=== PATIENT | male | born 1970 | race Caucasian/White ===

== ENCOUNTER 2016-11-04 12:03 | Inpatient (IN) | payer OTHER ==
[~2016-11-04] VITALS: Ht 177.8 cm; Wt 117.6 kg
[2016-11-04 13:06] LABS: BASOPHIL % 0.4 % (0-2); PLATELET COUNT 244 x10^3mcL (130-400)
[2016-11-04 13:11] LABS: RED CELL DISTRIBUTION WIDTH 16.9 % (11.5-14.5)
[2016-11-04 13:12] LABS: rbc morphology (normal/abnorm) ABNORMAL (NORMAL)
[2016-11-04 13:15] LABS: CALCIUM 8.9 mg/dL (8.5-10.1); CARBON DIOXIDE 28.6 mmol/L (21-32); CHLORIDE SERUM 107 mmol/L (98-107); GFR1 > 60 mL/min; GLUCOSE SERUM 110 mg/dL (74-106); POTASSIUM SERUM 3.8 mmol/L (3.5-5.1); SODIUM SERUM 143 mmol/L (136-145)
[2016-11-04 13:22] LABS: ALBUMIN 3.4 g/dL (3.4-5.0); ALKALINE PHOSPHATASE 69 U/L (46-116); ALT/SGPT 33 U/L (16-63); AMYLASE 48 U/L (25-115); AST/SGOT 32 U/L (15-37); LIPASE 237 IU/L (73-393)
[2016-11-04 14:39] LABS: UA SPECIFIC GRAVITY >=1.030 (1.005-1.035); microscopic required? YES; urine erythrocyte NEGATIVE (NEGATIVE)
[2016-11-04] MEDS ORDERED: BENAZEPRIL HYDR20 M1 PO (15:02)
[2016-11-04] MEDS ORDERED: ALPRAZOLAM1 MG PO (15:02)
[2016-11-04] MEDS ORDERED: LOVASTATIN40 MG PO (15:03)
[2016-11-04] MEDS ORDERED: GABAPENTIN100 M2 PO (15:03)
[2016-11-04] MEDS ORDERED: COUMADIN5 MG PO (15:04)
[2016-11-04] MEDS ORDERED: AMBIEN10 MG PO (15:04)
[2016-11-04 15:21] LABS: MAGNESIUM 2.1 mg/dL (1.8-2.4); PHOSPHOROUS 3.1 mg/dL (2.5-4.9)
[2016-11-04 15:22] LABS: CHOLESTEROL/HDL RATIO 2.3
[2016-11-04 15:24] LABS: T3 TOTAL 0.96 ng/mL
[2016-11-04 15:27] LABS: FREE T4 1.2 ng/dL (0.76-1.46); FREE THYROXINE INDEX 2.7 ug/dL (1.4-4.5); T4(THYROXINE) 6.9 ug/dL (4.7-13.3)
[2016-11-04 15:56] VITALS: BP 169/111
[2016-11-04 15:58] VITALS: BP 169/111
[2016-11-04 21:15] VITALS: BP 161/92; BP 172/109
[2016-11-04 21:45] VITALS: BP 161/92
[2016-11-04 22:30] VITALS: BP 158/94
[2016-11-04 22:40] LABS: AMPHETAMINE QUAL UR POSITIVE (NEG <=1000)
[2016-11-04 23:01] VITALS: BP 150/98
[2016-11-05] VITALS (13 sets, daily range): BP systolic 126–164; BP diastolic 82–109; Ht 177.8 cm; Wt 117.6 kg
[2016-11-05 05:45] LABS: CALCIUM 8.4 mg/dL (8.5-10.1); CARBON DIOXIDE 28.9 mmol/L (21-32); CHLORIDE SERUM 108 mmol/L (98-107); CREATININE SERUM 0.9 mg/dL (0.7-1.3); GFR1 > 60 mL/min; GLUCOSE SERUM 103 mg/dL (74-106); POTASSIUM SERUM 4.1 mmol/L (3.5-5.1); SODIUM SERUM 143 mmol/L (136-145)
[2016-11-05 05:53] LABS: BASOPHIL % 0.4 % (0-2); PLATELET COUNT 235 x10^3mcL (130-400)
[2016-11-05 05:55] LABS: RED CELL DISTRIBUTION WIDTH 16.9 % (11.5-14.5)
[2016-11-06] VITALS (9 sets, daily range): BP systolic 135–186; BP diastolic 72–113
[2016-11-07 05:28] VITALS: BP 156/84
[2016-11-07 11:30] VITALS: BP 150/88
[2016-11-07] MEDS ORDERED: NORCO1 TA2 PO (11:41)
[2016-11-07] MEDS ORDERED: COLACE100 MG PO (11:42)
[2016-11-07 12:02] VITALS: BP 150/88
== END 2016-11-07 12:20 | disposition home or self-care (01) | DRG 247 ==
LOC: ED 12:03 → DU 14:16 → IC 14:16 → DU 15:48 → IC 20:22 → DU 11-05 12:54 → MU 11-07 09:08
PROVIDERS: Emergency Medicine; Family Medicine; ADMIT Family Medicine
DX: K56.60 Unspecified intestinal obstruction (principal); N17.0 Acute kidney failure with tubular necrosis; F15.10 Other stimulant abuse, uncomplicated; R73.03 Prediabetes; I16.0 Hypertensive urgency; I70.1 Atherosclerosis of renal artery; E44.1 Mild protein-calorie malnutrition; Z98.84 Bariatric surgery status; Z68.37 Body mass index [BMI] 37.0-37.9, adult; Z79.01 Long term (current) use of anticoagulants; F17.210 Nicotine dependence, cigarettes, uncomplicated; Z86.718 Personal history of other venous thrombosis and embolism; I10 Essential (primary) hypertension; E66.01 Morbid (severe) obesity due to excess calories
CPT/HCPCS: 82962; 83880; 84439; A9698; J0360; J0690; J2175; J2250; J2270; J2405; J2543; J3010; J3490; J7030; Q0092; Q9966; Q9967

== ENCOUNTER 2017-10-11 18:47 | Emergency (ER) | payer OTHER ==
[~2017-10-11] VITALS: Ht 177.8 cm; Wt 113.4 kg
[~2017-10-11 18:47] MED LIST: ALPRAZOLAM1 MG PO; AMBIEN10 MG PO; BENAZEPRIL HYDR20 M1 PO; COLACE100 MG PO; COUMADIN5 MG PO; GABAPENTIN100 M2 PO; LOVASTATIN40 MG PO; NORCO1 TA2 PO
[2017-10-11 19:07] VITALS: Ht 177.8 cm; Wt 113.4 kg
[2017-10-11 20:28] LABS: BASOPHIL % 0.4 % (0-2); PLATELET COUNT 251 x10^3mcL (130-400)
[2017-10-11 20:44] LABS: RED CELL DISTRIBUTION WIDTH 17.2 % (11.5-14.5)
[2017-10-11 20:45] LABS: CALCIUM 8.6 mg/dL (8.5-10.1); CARBON DIOXIDE 30.1 mmol/L (21-32); CHLORIDE SERUM 107 mmol/L (98-107); GFR1 > 60 mL/min; GLUCOSE SERUM 93 mg/dL (74-106); POTASSIUM SERUM 5.2 mmol/L (3.5-5.1); SODIUM SERUM 141 mmol/L (136-145)
[2017-10-11 20:50] LABS: ALBUMIN 3.2 g/dL (3.4-5.0); ALKALINE PHOSPHATASE 71 U/L (46-116); ALT/SGPT 35 U/L (16-63); AMYLASE 59 U/L (25-115); AST/SGOT 34 U/L (15-37); BILIRUBIN TOTAL 0.54 mg/dL (0.20-1.00); LIPASE 261 IU/L (73-393); TOTAL PROTEIN, SERUM 6.8 g/dL (6.4-8.2)
[2017-10-11 22:13] VITALS: BP 178/109
== END 2017-10-11 22:13 | disposition home or self-care (01) ==
LOC: ED 18:47
PROVIDERS: Emergency Medicine
DX: R10.13 Epigastric pain (principal); J45.909 Unspecified asthma, uncomplicated; I11.0 Hypertensive heart disease with heart failure; I50.9 Heart failure, unspecified
CPT/HCPCS: 36415; 83880; J1885; J3010

== ENCOUNTER 2018-03-23 12:43 | Inpatient (IN) | payer OTHER | END 2018-03-25 15:14 | disposition home or self-care (01) | LOC: ED 12:43 → DU 15:19 → ED 12:43 → DU 15:19 → ED 12:43 → DU 15:19 → ED 12:43 → DU 15:19 → ED 12:43 → DU 15:19 → ED 12:43 → DU 15:19 → ED 12:43 → DU 15:19 | DX: I50.43 Acute on chronic combined systolic (congestive) and diastolic (congestive) heart failure (principal); E43 Unspecified severe protein-calorie malnutrition; D68.69 Other thrombophilia; Z68.41 Body mass index [BMI] 40.0-44.9, adult; E11.65 Type 2 diabetes mellitus with hyperglycemia; D64.9 Anemia, unspecified; F15.21 Other stimulant dependence, in remission; F17.210 Nicotine dependence, cigarettes, uncomplicated; Z59.0 Homelessness; Z98.84 Bariatric surgery status; Z79.01 Long term (current) use of anticoagulants; Z91.14 Patient's other noncompliance with medication regimen; Z86.718 Personal history of other venous thrombosis and embolism ==

== ENCOUNTER 2019-03-19 22:43 | Emergency (ER) | payer OTHER ==
[~2019-03-19] VITALS: Ht 177.8 cm; Wt 115.7 kg
[~2019-03-19 22:43] MED LIST changes: +ELIQUIS2.5 MG PO; +LASIX40 MG PO; +LEVAQUIN750 MG PO
[2019-03-19 23:01] VITALS: BP 162/103; Ht 177.8 cm; Wt 115.7 kg
== END 2019-03-20 01:35 | disposition home or self-care (01) ==
LOC: ED 22:43
DX: L02.01 Cutaneous abscess of face (principal); I11.0 Hypertensive heart disease with heart failure; I50.9 Heart failure, unspecified; J45.909 Unspecified asthma, uncomplicated; Z98.890 Other specified postprocedural states
CPT/HCPCS: 90715; J2001

== ENCOUNTER 2019-08-17 22:44 | Inpatient (IN) | payer OTHER ==
[~2019-08-17] VITALS: Ht 177.8 cm; Wt 131.5 kg
[2019-08-17 22:57] VITALS: Ht 177.8 cm; Wt 131.5 kg
--- NOTE | 2019-08-17 23:05 | NUR ---
PT TO ED WITH CHF EXACERBATION X3 DAYS. PT REPORTS SOB WHEN IN SUPINE POSITION. PT REPORTS HIS BP IS "OUT OF CONTROL" AND HIS "HEAD IS GOING TO EXPLODE". PT REPORTS BLOATING TO ABDOMEN X1 DAY. PT REPORTS HE HAS A DVT IN RIGHT LOWER EXTREMITY. PT REPORTS HE IS UNABLE TO RELAX. PT LUNG SOUNDS CONGESTED BILATERALLY. PT NOTED WITH +1 PITTING EDEMA TO BILATERAL LOWER EXTREMITIES. PT REPORTS HE WAS DX WITH CHF IN "1989 SOMETHING". PT REPORTS HE IS COMPLIANT WITH HOME MEDIACTIONS AT THIS TIME. PT DENIES N/V/D/C, FEVER, COUGH, AND SICK CONTACTS AT THIS TIME. PT IS A&OX4.
--- NOTE | 2019-08-17 23:15 | NUR ---
SALINA, EMT AT BEDSIDE FOR EKG
--- NOTE | 2019-08-17 23:15 | NUR ---
DR HASSAN AT BEDSIDE FOR MSE
--- NOTE | 2019-08-17 23:20 | NUR ---
XRAY AT BEDSIDE
[2019-08-17 23:36] LABS: CALCIUM 8.4 mg/dL (8.5-10.1); CREATININE SERUM 1.6 mg/dL (0.7-1.3); POTASSIUM SERUM 4.5 mmol/L (3.5-5.1)
[2019-08-17 23:40] LABS: BILIRUBIN TOTAL 0.7 mg/dL (0.20-1.00); TOTAL PROTEIN, SERUM 7.3 g/dL (6.4-8.2)
[2019-08-17 23:44] LABS: ALBUMIN 3.3 g/dL (3.4-5.0)
--- NOTE | 2019-08-17 23:47 | NUR ---
PT 02 NOTED AT 88% ON 2L NC INCREASED 02 TO 4L NC-O2 SATURATION NOW AT 99% PT REPORTS "THAT OXYGEN IS MUCH BETTER".
[2019-08-18] VITALS (7 sets, daily range): BP systolic 44–125; BP diastolic 17–77
--- NOTE | 2019-08-18 00:02 | NUR ---
PT PLACED ON NON-REBREATHER 15L. PT 02 SATURATION 100% AT THIS TIME
--- NOTE | 2019-08-18 00:04 | NUR ---
REPOSITIONED PT WITH HOB ELEVATED.
--- NOTE | 2019-08-18 00:06 | NUR ---
DR HASSAN AT BEDSIDE, AWARE OF PTS CONDITION. PER DR HASSAN, CALL RT FOR BIPAP. RT CALLED AT THIS TIME. PT IS A&OX4.
--- NOTE | 2019-08-18 00:08 | NUR ---
RT AT BEDSIDE TO PUT PT ON BIPAP.
--- NOTE | 2019-08-18 00:12 | NUR ---
PT REPORTS "IT IS A LITTLE EASIER TO BREATHE NOW". PT SITTING UP IN HIGH SETHI'S POSITION. RESPONSIVE AND ORIENTED. PT REMAINS ON FULL CM IN VIEW OF NURSE'S STATION.
[2019-08-18 00:38] LABS: PLATELET COUNT 316 x10^3mcL (130-400)
--- NOTE | 2019-08-18 00:50 | NUR ---
DR HASSAN AT BEDSIDE FOR CARDIAC ULTRASOUND.
[2019-08-18 00:59] LABS: RED CELL DISTRIBUTION WIDTH 20.5 % (11.5-14.5)
--- NOTE | 2019-08-18 01:16 | NUR ---
SPOKE WITH ARMATURE WINDERZACH DERAS AND INFORMED HIM THAT WE WILL BE HOLDING OFF ON CT AT THIS TIME PER DR SONYA MIR.
--- NOTE | 2019-08-18 01:43 | NUR ---
AT BEDSIDE ASSESSING PT.
[2019-08-18 02:01] LABS: CHOLESTEROL/HDL RATIO 2.4
--- NOTE | 2019-08-18 02:01 | NUR ---
CHAYO # [phone] PROVIDED UPDATE TO WITH PERMISSION OF PT. INFORMED HER OF PT ADMISSION
[2019-08-18 02:13] LABS: rbc morphology (normal/abnorm) ABNORMAL (NORMAL)
--- NOTE | 2019-08-18 02:16 | NUR ---
D/C IV IN RIGHT HAND AT THIS TIME. UNABLE TO FLUSH WITHOUT DIFFICULTY.
--- NOTE | 2019-08-18 02:19 | NUR ---
PT NOTED HYPOTENSIVE ON MONITOR. MYSELF AND JENNIFER PARNELL AT BEDSIDE. PT REPOSITIONED AND BP RECHECKED. MAP OF 83 CURRENTLY AFTER BP RECHECK. PT ANSWERS QUESTIONS APPROPRIATELY, REQUESTING ANXIETY MEDICATION. DR HASSAN AT BEDSIDE. NO NEW ORDERS AT THIS TIME.
[2019-08-18 02:21] LABS: MONOCYTE 11 % (0-7); SEGMENTED NEUTROPHILS 73 % (37-75)
--- NOTE | 2019-08-18 03:06 | NUR ---
PT RESTING IN BED ON LEFT SIDE. PT ON BIPAP, ON FULL COMMUNITY PROGRAM ASSISTANT, AND IN FULL VIEW OF NURSES STATION. NO S/S OF DISTRESS NOTED AT THIS TIME.
--- NOTE | 2019-08-18 03:30 | NUR ---
PT ASSISTED ON TO BED [place] AT THIS TIME.
--- NOTE | 2019-08-18 04:06 | NUR ---
PT REFUSING DEJESUS INSERTION AT THIS TIME. PT REPORTS "NO, NO, NO, I HAD A BAD EXPERIENCE, I WON'T LET YOU DO THAT". INFORMED PT THAT IT IS NECESSARY FOR HIS CARE, PT CONTINUES TO REFUSE. AWARE.
--- NOTE | 2019-08-18 05:26 | NUR ---
DR HASSAN, TANJA, RT, AKANKSHA, RT AND DEE, RT, RAVINDER, RN, MYSELF AND CATHY, EMT AT BEDSIDE FOR INTUBATION. PT ON FULL OIL DISTRIBUTOR, CRASH CART AT BEDSIDE. 525-1 INTUBATION ATTEMPT SUCCESSFUL. 526-PER DR HASSAN, INTUBATION CONFIRMED BY AUSCULTATION AT THIS TIME.
--- NOTE | 2019-08-18 05:26 | NUR ---
0526-INTUBATION COMPLETED BY DR HASSAN AT THIS TIME 0527-PER DR HASSAN, ETT PLACEMENT CONFIRMED BY AUSCULTATION, 26CM AT LIP.
--- NOTE | 2019-08-18 05:27 | NUR ---
PER DR HASSAN, INCREASE EPI TITRATION TO 15MCG/MIN AT THIS TIME. 0542- PER DR HASSAN, INCREASE EPI TITRATION TO 20MCG/MIN AT THIS TIME. 0626-PER DR HASSAN, DECREASE EPT TITRATION TO 15MCG/MIN AT THIS TIME.
--- NOTE | 2019-08-18 05:39 | NUR ---
RT TO INCREASE PEEP TO [address] HASSAN AT THIS TIME
--- NOTE | 2019-08-18 05:41 | NUR ---
PT NOTED WITH [address]%. [address] HASSAN AT BEDSIDE. PER DR HASSAN, NO BREATH SOUNDS NOTED TO LEFT SIDE. ETT PULLED BACK TO 23CM AT THE LIP. IMPROVEMENT OF OXYGEN SATURATION NOTED AT THIS TIME.
--- NOTE | 2019-08-18 05:44 | NUR ---
XRAY AT BEDSIDE TO CONFIRM ETT PLACEMENT
--- NOTE | 2019-08-18 05:46 | NUR ---
PT NOTED OPENING EYES, MOVING HEAD, UPPER EXTREMITIES, AND LOWER EXTREMITIES. PER DR HASSAN, INCREASE TITRATION TO 2MG AT THIS TIME.
--- NOTE | 2019-08-18 06:20 | NUR ---
DR HASSAN AT BEDSIDE FOR CENTRAL LINE PLACEMENT.
--- NOTE | 2019-08-18 06:48 | NUR ---
RT INCREASED PEEP TO 12, PER DR HASSAN AT THIS TIME
--- NOTE | 2019-08-18 07:12 | NUR ---
KETAMINE DRIP MOVED FROM L AC TO CENTRAL LINE, [place].
--- NOTE | 2019-08-18 07:26 | NUR ---
PT REPORT CALLED TO TODD PARNELL IN ICU.
[2019-08-18 07:29] LABS: CALCIUM 7.9 mg/dL (8.5-10.1); CREATININE SERUM 2.2 mg/dL (0.7-1.3); MAGNESIUM 2.7 mg/dL (1.8-2.4); PHOSPHOROUS 7.7 mg/dL (2.5-4.9)
[2019-08-18 07:37] LABS: UA SPECIFIC GRAVITY >=1.030 (1.005-1.035); microscopic required? YES; urine erythrocyte TRACE (NEGATIVE)
[2019-08-18 07:39] LABS: POTASSIUM SERUM 5.6 mmol/L (3.5-5.1)
--- NOTE | 2019-08-18 07:45 | NUR ---
PT OFF FLOOR FOR CT SCAN. PT ON FULL CM, DRIPS INFUSING, RT AT BEDSIDE, PT REMAINS ON VENTILATOR. PT SEDATED AT THIS TIME. VSS.
--- NOTE | 2019-08-18 07:55 | NUR ---
1MG EPI IN 250ML D5W DRIP STARTED AT THIS TIME. EPI DRIP COMPLETED INFUSION WHILE PT WAS IN CT. NEW DRIP INITIATED AT THIS TIME.
--- NOTE | 2019-08-18 08:06 | NUR ---
REPORT RECIEVED FROM STUCC[employer] WORKER RAVINDER @ 8967, PT GOING TO CT PRIOR TO TRANSFER PT ARRIVED AT 0806, INTUBATED AND SEDATED ON FENT 150MCG/HR, ABLE TO FOLLOW SIMPLE COMMANDS, PT ON VENT 23CM @LL. VCV-AC, 450 TV, 100% FIO2, 12 PEEP, 14 RR, LUNG SOUNDS DIMINISHED BILATERALLY, PITTING EDEMA TO EXTREMETIES, NSR, PT ON EPI DRIP AT 10MCG/HR, SKIN MOTTELING TO BLE, LT ANGUIANO SCAB, OGT INTACT & SECURED, PT HAS RT IJ CENTRAL LINE X3 PORTS, RT FOREARM 18G PIV AND RT AC 18G PIV, PT HAS F/C INTACT. CRITICAL LAB VALUES OF LACTIC ACID 7.4 & POTASSIUM @ 5.6 REPORTED TO ,
--- NOTE | 2019-08-18 08:12 | NUR ---
CT SCAN COMPLETED AT THIS TIME. PT TRANSFERRED FROM CT TO ICU BED 5 AT THIS TIMES.
--- NOTE | 2019-08-18 08:30 | NUR ---
DR LOOMIS AT BEDSIDE TO ASSESS PATIENT. UPDATES PROVIDED BY NURSING. NEW ORDERS RECEIVED. WILL CARRY OUT ORDERE. WILL CONTINUE TO MONITOR.
[2019-08-18 08:34] LABS: AMPHETAMINE QUAL UR POSITIVE (See below)
--- NOTE | 2019-08-18 08:50 | NUR ---
US TECH AT BEDSIDE AND PERFORMED US VENOUS/ARTERIAL.
--- NOTE | 2019-08-18 09:05 | NUR ---
PATIENT'S K 5.6. PATIENT ADMINISTERED 1 AMP D50 AND 5 UNITS REGULAR INSULIN IVP TO DECREASE K+ LEVEL. BOLUS OF 500 ML INITIATED AT THIS TIME ALSO.
--- NOTE | 2019-08-18 09:05 | NUR ---
AB COOL AT BEDSIDE AND TITRATED FIO2 ON VENT TO 70% AND CHANGED RATE TO 18.
--- NOTE | 2019-08-18 09:05 | NUR ---
TITRATED FIO2 TO 70%., INCREASED RR TO 18 AND VT:[address] LOOMIS. NO COMPLIATIONS AT THIS TIME. WILL CONT.TO MONITOR
[2019-08-18 09:12] LABS: PLATELET COUNT 246 x10^3mcL (130-400); RED CELL DISTRIBUTION WIDTH 20.4 % (11.5-14.5)
[2019-08-18 09:13] LABS: BASOPHIL % 0.3 % (0-2)
--- NOTE | 2019-08-18 10:16 | NUR ---
AB COOL AT BEDSIDE AND TITRATED FIO2 ON VENT TO 60%. SPO2 REAMINS GREATER THAN 95%.
--- NOTE | 2019-08-18 11:01 | NUR ---
ECHOCARDIOGRAM PENDING-COVID RESULT PENDING
[2019-08-18 11:05] LABS: rbc morphology (normal/abnorm) ABNORMAL (NORMAL)
--- NOTE | 2019-08-18 11:14 | NUR ---
PATIENT'S MOTHER KIM TELEPHONED UNIT FOR PATIENT UPDATE. UPDATES PROVIDED BY NURSING. TELEPHONE NUMBER FOR PATIENT'S MOTHER .
[2019-08-18 11:23] LABS: CALCIUM 7.6 mg/dL (8.5-10.1); CARBON DIOXIDE 18.5 mmol/L (21-32); CREATININE SERUM 2.4 mg/dL (0.7-1.3)
--- NOTE | 2019-08-18 12:00 | NUR ---
TITRATED FIO2 TO 50%. NO COMPLICATIONS AT THIS TIME. SPO2:99%. PARMJIT BROOKS NOTIFIED. WILL CONT.TO MONITOR
--- NOTE | 2019-08-18 13:03 | NUR ---
PATIENT'S BP 74/41, MAP 51. LEVOPHED INITIATED AT 2 MCG/MIN, WILL CONTINUE TO MONITOR.
--- NOTE | 2019-08-18 13:16 | NUR ---
UNABLE TO AROUSE PATIENT. FENTANYL AND VERSED TITRATED OFF. LEVOPHED REMAINS ON FOR LOW BP. PAGED DR HUFFMAN AND MADE AWARE CHANGE OF CONDITION.
--- NOTE | 2019-08-18 13:25 | NUR ---
ASSESSED PATIENT'S BEDSIDE GLUCOSE AT 149.
--- NOTE | 2019-08-18 13:30 | NUR ---
DR Ethel CLIFFORD AT BEDSIDE TO ASSESS PATIENT. NURSING PROVIDING PATIENT UPDATE.
--- NOTE | 2019-08-18 13:37 | NUR ---
PATIENT'S SPO2 IN 70'S. FIO2 ON VENT TITRATED TO 100%. FLORIAN RT MADE AWARE.
--- NOTE | 2019-08-18 13:50 | NUR ---
DR HUFFMAN ON UNT. UPDATESPROVIDED BY NURSING. QUANG CRAIG RECEIVED FOR Drill Map.
--- NOTE | 2019-08-18 14:06 | NUR ---
NEOSYNEPHRINE INITIATED AT 1405, LEVOPHED AT 30MCG/MIN BP CONTINUE TO BE LOW, 72/40 (51). CON INITIATED AT 50MCG/MIN
--- NOTE | 2019-08-18 14:31 | NUR ---
CANCELLATION REQUESTED FOR ECHOCARDIOGRAM PER DR ALEX
--- NOTE | 2019-08-18 15:34 | NUR ---
DR HUFFMAN WILL CONTACT PATIENT'S AND DISCUSS POC AND CURRENT EVENTS.
--- NOTE | 2019-08-18 16:31 | NUR ---
CON TITRATED TO 225MCG/MIN BP 83/23, LEVOPHED @ 30MCG/MIN. WILL CONTINUE TO MONITOR
--- NOTE | 2019-08-18 16:49 | NUR ---
CON TITRATED TO 250MCG/MIN FOR BP 82/57
--- NOTE | 2019-08-18 17:10 | NUR ---
SHIP MANAGER AT BEDSIDE PERFORMING CARDIAC ECHO. PATIENT NOTED TO HAVE GONE INTO ASYSTOLE. CODE [facility]UE CALLED. SEE CODE SHEET.
[2019-08-18 17:15] LABS: BILIRUBIN TOTAL 1.2 mg/dL (0.20-1.00); CALCIUM 7.9 mg/dL (8.5-10.1); CARBON DIOXIDE 17.8 mmol/L (21-32); CREATININE SERUM 2.8 mg/dL (0.7-1.3); TOTAL PROTEIN, SERUM 7.1 g/dL (6.4-8.2)
[2019-08-18 17:17] LABS: BASOPHIL % 0.3 % (0-2); PLATELET COUNT 245 x10^3mcL (130-400)
--- NOTE | 2019-08-18 17:25 | NUR ---
DR DIETRICH UNABLE TO GET IN CONTACT WITH PATIENT'S CHAYO. HE TELEPHONED PATIENT'S MOTHER KIM AND INFORMED HER OF PATIENT'S STATUS.
[2019-08-18 17:43] LABS: rbc morphology (normal/abnorm) ABNORMAL (NORMAL)
--- NOTE | 2019-08-18 18:09 | NUR ---
very limited echo done.
--- NOTE | 2019-08-18 18:20 | NUR ---
[facility] CALLED, JARED ANSWERED RELEASED PT,
--- NOTE | 2019-08-18 18:26 | NUR ---
[facility] CALLED, AWAITING CALL BACK
--- NOTE | 2019-08-18 19:30 | NUR ---
PT REPORT GIVEN BY REGISTERED NURSE BEHAVIORAL HEALTH AMY. PT HAS BEEN DECLARED AT [address] Unique RAMSAY. PT DX CARDIOPULMONARY ARREST. [facility] CONTACTED AND D/W WITH JARED AND HAS RELEASED BODY. REGISTERED N[facility] HE[facility] HAS CALLED SERVER MANAGER FOR INITIAL REPORT AND HAS BEEN AWAITING FOR CALL BACK FROM SERVER MANAGER TO GIVE REPORT AND FOR BODY TO BE RELEASED. NO FURTHER PLANS. WILL AWAIT FOR CALL BACK.
--- NOTE | 2019-08-18 19:34 | NUR ---
REPORT GIVEN TO SABIHA PARNELL, DELEGATED CALL FROM [facility] TO NURSE. ALL QUESTIONS & CONCERNS ANSWERED
--- NOTE | 2019-08-18 21:13 | NUR ---
POLYSOMNOGRAPHIC TECHNICIAN PAGED TWICE. ABLE TO D/W WITH PHOTORESIST CONTACT PRINTER AND IS MADE AWARE ABOUT ICU 5 PATIENT AND STATES THEY ARE BACKED UP AND WILL CALL BACK [facility].
--- NOTE | 2019-08-18 21:34 | NUR ---
D/W BACK UP SCAN COORDINATOR PRODUCE SERVICE TEAM MEMBER. PT H&P GIVEN. BECAUSE PT WAS POSITIVE FOR AMPHETAMINES ON URINE DRUG SCREEN, BACK UP SCAN COORDINATOR CANNOT RELEASE PT AND WILL HAVE DEPUTY COME TO REVIEW PT CHART FOR POSSIBLE OD PLAYING A FACTOR IN PATIENT EXPIRATION BUT BACK UP SCAN COORDINATOR STATES PT CAN BE TRANSFERRED TO [facility] AND BE HELD THERE UNTIL DEPUTY COMES TO REVIEW PT CASE.
--- NOTE | 2019-08-18 22:12 | NUR ---
D/W BOWL ATTENDANT SUSAN UMANA. BOWL ATTENDANT DUE TO PT TESTING POSITIVE FOR AMPHETAMINES. BUT BOWL ATTENDANT CLEARLY STATES ALL TUBES AND LINES CAN BE REMOVED AND PT CAN BE TRANSFERRED TO [facility] WHERE PT WILL BE HELD UNTIL DEPUTY IS SENT.
== END 2019-08-18 21:46 | disposition expired | DRG 133 ==
LOC: ED 22:44 → IC 08-18 01:10
PROVIDERS: Emergency Medicine; Internal Medicine Critical Care Medicine; ADMIT Family Medicine; ATTEND Family Medicine
PROC: 0BH17EZ Insertion of Endotracheal Airway into Trachea, Via Natural or Artificial Opening (ICD-10-PCS; principal; 2019-08-18)
PROC: 02HV33Z Insertion of Infusion Device into Superior Vena Cava, Percutaneous Approach (ICD-10-PCS; 2019-08-18)
PROC: B548ZZA Ultrasonography of Superior Vena Cava, Guidance (ICD-10-PCS; 2019-08-18)
PROC: 5A1935Z Respiratory Ventilation, Less than 24 Consecutive Hours (ICD-10-PCS; 2019-08-18)
DX: J96.01 Acute respiratory failure with hypoxia (principal); N17.0 Acute kidney failure with tubular necrosis; R57.0 Cardiogenic shock; I50.9 Heart failure, unspecified; I11.0 Hypertensive heart disease with heart failure; J45.909 Unspecified asthma, uncomplicated; E87.70 Fluid overload, unspecified; M10.9 Gout, unspecified; F17.210 Nicotine dependence, cigarettes, uncomplicated; D64.9 Anemia, unspecified; E66.9 Obesity, unspecified; E87.5 Hyperkalemia; E44.0 Moderate protein-calorie malnutrition; Z68.38 Body mass index [BMI] 38.0-38.9, adult; Z03.818 Encounter for observation for suspected exposure to other biological agents ruled out
CPT/HCPCS: 31500; 36600; 82962; 83880; 85378; A4628; G0378; J0171; J0330; J0456; J0696; J1644; J1815; J1940; J2250; J2370; J2405; J3010; J3490; J7030; Q0092; Q9967; U0003-CS